=== PATIENT | female | born 1995 | race Caucasian/White ===

== ENCOUNTER 2016-08-27 04:00 | Inpatient (IN) | payer MEDICAID ==
[2016-08-27] MEDS ORDERED: LACTATED RINGERS 1,000 ML IV SCH ×2 (05:00→10:00)
[2016-08-27 09:35] LABS: Basophils % (Auto) 0.2 % (0.0-1.8); Eosinophils % (Auto) 0.4 % (0.0-4.3); Hematocrit 36.8 % (30.3-42.9); Hemoglobin 11.8 gm/dl (10.1-14.3); Mean Corpuscular HGB Conc 32 % (30-34); Mean Corpuscular Hemoglobin 29 pg (28-32); Mean Corpuscular Volume 91 fl (79-97); Platelet Count 300 K/mm3 (140-440); Red Blood Count 4.07 M/mm3 (3.65-5.03); Red Cell Distribution Width 16.2 % (13.2-15.2); White Blood Count 11.3 K/mm3 (4.5-11.0)
[2016-08-27] MEDS ORDERED: POLYCILLIN/NS 2 GM/100 ML 2 GM/100 ML BAG IV ONE (09:46)
--- NOTE | 2016-08-27 09:52 | History and Physical Report ---
History of Present Illness Date of examination: 08/27/16 Chief complaint: Labor History of present illness: Pt is a 21yo HF EDC 08/28/16; EGA 39 6/7 weeks presents to L&D complaining of RUC's q 2-4 mins. She received care with Dr Michel, and care has been uneventful, but records are not available. Past History Past Medical History: no pertinent history Past Surgical History: no surgical history Family/Genetic History: none Social history: no significant social history, single - Obstetrical History Expected Date of Delivery: 08/28/16 Actual Gestation: 39 Week(s) 6 Day(s) : 1 Medications and Allergies Allergies Allergy/AdvReac Type Severity Reaction Status Date / Time No Known Allergies Allergy Unverified 08/27/16 04:01 Home Medications Medication Instructions Recorded Confirmed Last Taken Type Pnv with Ca,No.72/Iron/FA [Pnv 1 tab PO DAILY 08/27/16 08/27/16 08/26/16 21:00 History Plus Multivit Tab] 1 Active Meds: Active Medications Butorphanol Tartrate (Stadol) 2 mg IV Q2H PRN PRN Reason: Pain , Severe (7-10) Ephedrine Sulfate (Ephedrine Sulfate) 10 mg IV Q2M PRN PRN Reason: Hypotension Stop: 08/27/16 09:51 Fentanyl (Sublimaze) 100 mcg IV Q2H PRN PRN Reason: Labor Pain Lactated Ringer's (Lactated Ringers) 1,000 mls @ 125 mls/hr IV DIRECT GIBSON Last Admin: 08/27/16 05:00 Dose: 125 mls/hr Lactated Ringer's (Lactated Ringers) 1,000 mls @ 125 mls/hr IV DIRECT GIBSON Ampicillin Sodium (Polycillin/Ns 1 Gm/50 Ml) 1 gm in 50 mls @ 100 mls/hr IV Q4HR GIBSON PRN Reason: Protocol Ampicillin Sodium (Polycillin/Ns 2 Gm/100 Ml) 2 gm in 100 mls @ 100 mls/hr IV ONCE ONE PRN Reason: Protocol Stop: 08/27/16 10:45 Lactated Ringer's (Lactated Ringers) 1,000 mls @ 125 mls/hr IV DIRECT GIBSON Oxytocin/Sodium Chloride (Pitocin/Ns 20 Unit/1000ml Drip) 20 units in 1,000 mls @ 125 mls/hr IV DIRECT GIBSON Oxytocin/Sodium Chloride (Pitocin/Ns 30 Unit/500ml) 30 units in 500 mls @ 4 mls /hr IV TITR GIBSON PRN Reason: Protocol Oxytocin/Sodium Chloride (Pitocin/Ns 30 Unit/500ml) 30 units in 500 mls @ 1 mls /hr IV TITR GIBSON; 1 MILLIUNITS/MIN PRN Reason: Protocol Lidocaine (Xylocaine 2%) 20 ml INFILTRATI ONCE ONE Stop: 08/27/16 09:47 Mineral Oil (Mineral Oil) 30 ml PO QHS PRN PRN Reason: Constipation Naloxone HCl (Narcan 0.4 Mg/1 Ml) 0.1 mg IV Q2MIN PRN PRN Reason: Res Rate </= 8 or 02 SAT < 92% Ondansetron HCl (Zofran) 4 mg IV Q8H PRN PRN Reason: Nausea And Vomiting Promethazine HCl (Phenergan) 25 mg PO Q6H PRN PRN Reason: Nausea And Vomiting Review of Systems All systems: negative - Vital Signs Vital signs: Vital Signs Pulse Pulse Ox 100 H 97 08/27/16 04:07 08/27/16 04:07 Temp Pulse Resp BP Pulse Ox 98.4 F 90 18 126/73 97 08/27/16 04:10 08/27/16 08:28 08/27/16 04:10 08/27/16 08:28 08/27/16 04:47 - Physical Exam Breasts: Positive: deferred Cardiovascular: Regular rate Lungs: Positive: Clear to auscultation Abdomen: Positive: normal appearance Genitourinary (Female): Positive: normal external genitalia Uterus: Positive: enlarged Extremities: Positive: normal - Obstetrical FHR: category 1 Uterine Contraction Monitor Mode: External Cervical Dilatation: 4.5 Cervical Effacement Percentage: 80 station: -2 Uterine Contraction Pattern: Regular Uterine Tone Measurement Phase: Contraction Uterine Contraction Intensity: Moderate Results Result Diagrams: 08/27/16 07:00 Abnormal lab results 08/27/16 Range/Units 07:00 WBC 11.3 H (4.5-11.0) K/mm3 RDW 16.2 H (13.2-15.2) % [place] % (Auto) 7.8 H (0.0-7.3) % [place] # 0.9 H (0.0-0.8) K/mm3 Seg Neutrophils % 76.4 H (40.0-70.0) % Seg Neutrophils # 8.7 H (1.8-7.7) K/mm3 All other labs normal. Assessment and Plan - Patient Problems (1) 39 weeks gestation of Onset Date: 08/27/16 Current Visit: Yes Status: Acute Plan to address problem: A: IUP @ 39 6/7 weeks in labor Unknown GBS P: Admit to L&D for expectant vaginal delivery IV Ampicillin Obtain medical records [facility].
[2016-08-27] MEDS ORDERED: NARCAN 0.4 MG/1 ML IV PRN (10:00)
[2016-08-27] MEDS ORDERED: ePHEDrine SULFATE IV PRN ×2 (10:00→11:46)
[2016-08-27] MEDS ORDERED: BRETHINE IVP PRN (10:00)
[2016-08-27] MEDS ORDERED: BRETHINE SUB-Q PRN (10:00)
[2016-08-27] MEDS ORDERED: PITOCin/NS 20 UNIT/1000ML DRIP 20 UNITS/1,000 ML BAG IV SCH (10:00)
[2016-08-27] MEDS ORDERED: PHENERGAN PO PRN (10:00)
[2016-08-27] MEDS ORDERED: SUBLIMAZE IV PRN (10:00)
[2016-08-27] MEDS ORDERED: PITOCin/NS 30 UNIT/500ML 30 UNITS/500 ML BAG IV SCH (10:00)
[2016-08-27] MEDS ORDERED: ZOFRAN IV PRN (10:00)
[2016-08-27] MEDS ORDERED: STADOL IV PRN (10:00)
[2016-08-27] MEDS ORDERED: XYLOCAINE 2% INFILTRATI ONE (10:00)
[2016-08-27] MEDS: LACTATED RINGERS 1,000 ML IV SCH ×3 (11:00→19:43)
[2016-08-27 11:09] LABS: HIV-1 Antigen p24 Non React (Non React); HIVR-1/2 Ab Non React (Non React)
[2016-08-27] MEDS ORDERED: ePHEDrine SULFATE ONE (11:38)
--- NOTE | 2016-08-27 11:46 | Anesthesia Consultation ---
Anesthesia Consult and Med Hx Date of service: 08/27/16 - Airway Anesthetic Teeth Evaluation: Good ROM Head & Neck: Adequate Mental/Hyoid Distance: Adequate Mallampati Class: Class II Intubation Access Assessment: Probably Good - Pulmonary Exam CTA: Yes - Cardiac Exam Cardiac Exam: RRR - Pre-Operative Health Status ASA Pre-Surgery Classification: ASA2 Proposed Anesthetic Plan: Epidural, Spinal - Pulmonary Hx Asthma: No COPD: No Hx Pneumonia: No - Cardiovascular System Hx Hypertension: No - Central Nervous System Hx Seizures: No Hx Psychiatric Problems: No - Endocrine Hx Renal Disease: No Hx End Stage Renal Disease: No Hx Hypothyroidism: No Hx Hyperthyroidism: No - Hematic Hx Anemia: No Hx Sickle Cell Disease: No - Other Systems Hx Alcohol Use: No Hx Obesity: Yes - Additional Comments Anesthesia Medical History Comments: +
[2016-08-27] MEDS: PITOCin/NS 30 UNIT/500ML 30 UNITS/500 ML BAG IV SCH ×3 (12:19→17:15)
[2016-08-27] MEDS: fentaNYL-BUPIV 2 MCG/ML-0.125% 200 MCG/100 ML BAG EPIDURAL SCH ×2 (12:52→20:31)
[2016-08-27] MEDS: POLYCILLIN/NS 1 GM/50 ML 1 GM/50 ML BAG IV SCH ×3 (13:31→21:41)
[2016-08-27 16:06] LABS: Urine Drugs of Abuse Note Disclamer
[2016-08-27] MEDS ORDERED: TYLENOL PO ONE (18:38)
[2016-08-27] MEDS ORDERED: MARCAINE-EPI/PF 0.5%-1:200,000 INFILTRATI ONE (18:41)
[2016-08-27] MEDS ORDERED: MINERAL OIL PO PRN (22:00)
--- NOTE | 2016-08-27 22:16 | Procedure Note ---
OB Delivery Note - Delivery Date of Delivery: 08/27/16 Surgeon: DENIS HERNANDEZ Estimated blood loss: 300cc - Vaginal Delivery presentation: vertex Delivery position: OA Intrapartum events: no care Delivery induction: none Delivery augmentation: pitocin Delivery monitor: external FHT, external uterine Route of delivery: vacuum extraction (3 pulls, no pop-offs) Indicators for instrumentation: maternal exhaustion Delivery placenta: spontaneous Delivery cord: 3 umbilical vessels Episiotomy: none Delivery laceration: 2nd degree (vaginal) Delivery repair: vicryl Anesthesia: epidural Delivery comments: delivered after 3 pulls and no pop-offs, oropharynx and nasopharynx bulb suctioned on perineum and handed to awaiting RT and NICU nurse. - A at 1 minute: 8 at 5 minutes: 9 Gender: Female (3827gms)
[2016-08-28] MEDS ORDERED: SENOKOT S PO SCH
[2016-08-28] MEDS ORDERED: DULCOLAX PR PRN (00:10)
[2016-08-28] MEDS ORDERED: ZOFRAN IV PRN (00:10)
[2016-08-28] MEDS ORDERED: TUCKS PAD TP PRN (00:10)
[2016-08-28] MEDS ORDERED: PHENERGAN PR PRN (00:10)
[2016-08-28] MEDS ORDERED: TYLENOL PO PRN (00:10)
[2016-08-28] MEDS ORDERED: MILK OF MAGNESIA PO PRN (00:10)
[2016-08-28] MEDS ORDERED: DERMOPLAST TP PRN (00:10)
[2016-08-28] MEDS ORDERED: BENADRYL PO PRN (00:10)
[2016-08-28] MEDS ORDERED: PHENERGAN PO PRN (00:10)
[2016-08-28] MEDS ORDERED: LANSINOH TP PRN (00:10)
[2016-08-28] MEDS: MOTRIN PO SCH ×4 (00:35→23:00)
[2016-08-28] MEDS ORDERED: SODIUM CHLORIDE FLUSH SYRINGE 10 ML IV NR (01:00)
[2016-08-28] MEDS ORDERED: PITOCin/NS 20 UNIT/1000ML DRIP 20 UNITS/1,000 ML BAG IV SCH (01:00)
[2016-08-28] MEDS: NORCO 5/325 PO PRN ×3 (01:16→22:59)
[2016-08-28] MEDS ORDERED: BOOSTRIX IM ONE (06:00)
--- NOTE | 2016-08-28 10:13 | Progress Note ---
Assessment and Plan - Patient Problems (1) 39 weeks gestation of Onset Date: 08/27/16 Current Visit: Yes Status: Resolved (2) (normal spontaneous vaginal delivery) Onset Date: 08/28/16 Current Visit: Yes Status: Resolved Plan to address problem: A: S/P - PPD #1 Doing well P: May go home tomorrow. Subjective - Subjective Date of service: 08/28/16 Principal diagnosis: s/p - PPD #1 Interval history: Pt is feeling well without complaints. Bleeding improved. Patient reports: appetite normal, voiding normally, pain well controlled, ambulating normally [place]: doing well, nursing well Objective - Vital Signs Latest vital signs: Vital Signs Temp Pulse Pulse Resp BP BP Pulse Ox 08/28/16 09:05 97.9 F 84 18 99/55 08/28/16 05:00 98.2 F 89 20 108/52 08/28/16 01:16 18 08/28/16 00:35 18 08/27/16 23:55 99.7 F H 115 H 20 120/55 08/27/16 23:25 98.4 F 08/27/16 23:07 117 H 111/56 08/27/16 23:04 118 H 95 08/27/16 22:59 115 H 125/63 95 08/27/16 22:54 111 H 95 08/27/16 22:49 115 H 94 08/27/16 22:44 115 H 126/65 95 08/27/16 22:39 119 H 95 08/27/16 22:34 112 H 95 08/27/16 22:30 118 H 122/66 08/27/16 22:29 118 H 97 08/27/16 22:24 113 H 97 08/27/16 22:20 101.2 F H 20 08/27/16 22:19 116 H 98 08/27/16 22:14 119 H 112/58 98 08/27/16 22:09 117 H 97 08/27/16 21:59 123 H 115/56 08/27/16 21:46 118 H 122/57 08/27/16 21:31 139 H 131/59 08/27/16 21:15 89 114/56 08/27/16 21:00 117 H 145/65 08/27/16 20:56 109 H 99 08/27/16 20:51 93 H 98 08/27/16 20:47 97 H 107/51 08/27/16 20:46 104 H 97 08/27/16 20:41 109 H 96 08/27/16 20:36 145 H 96 08/27/16 20:31 111 H 141/62 98 08/27/16 20:26 105 H 95 08/27/16 20:21 91 H 98 08/27/16 20:16 107 H 98 08/27/16 20:14 93 H 127/61 08/27/16 20:13 93 H 141/91 08/27/16 20:11 120 H 114/44 99 08/27/16 20:09 127 H 106/54 08/27/16 20:07 115 H 138/65 08/27/16 20:06 146 H 98 08/27/16 20:05 108 H 113/60 08/27/16 20:03 92 H 114/60 08/27/16 20:01 97 H 115/61 99 08/27/16 19:59 106 H 119/65 08/27/16 19:57 99 H 114/66 08/27/16 19:56 100 H 97 08/27/16 19:55 97 H 117/60 08/27/16 19:53 95 H 125/67 08/27/16 19:51 115 H 126/74 99 08/27/16 19:49 116 H 127/66 08/27/16 19:47 110 H 124/66 08/27/16 19:46 111 H 98 08/27/16 19:45 110 H 129/72 08/27/16 19:41 99 H 97 08/27/16 19:36 105 H 136/70 97 08/27/16 19:31 110 H 99 08/27/16 19:28 104 H 86 08/27/16 19:26 95 H 97 08/27/16 19:21 106 H 99 08/27/16 19:20 96 H 121/68 08/27/16 19:18 96 H 125/60 90 08/27/16 19:17 99.3 F 22 08/27/16 19:16 86 126/58 100 08/27/16 19:14 77 117/57 08/27/16 19:12 78 114/58 08/27/16 19:11 87 100 08/27/16 19:10 102 H 128/63 08/27/16 19:08 106 H 135/65 08/27/16 19:06 109 H 126/63 99 08/27/16 19:04 85 123/57 08/27/16 19:02 123 H 138/72 08/27/16 19:01 121 H 100 08/27/16 19:00 113 H 131/74 08/27/16 18:58 115 H 134/77 08/27/16 18:56 121 H 127/81 99 08/27/16 18:54 116 H 127/71 08/27/16 18:52 101 H 123/59 08/27/16 18:51 116 H 98 08/27/16 18:50 101 H 123/67 08/27/16 18:48 129 H 130/73 08/27/16 18:46 119 H 134/71 99 08/27/16 18:44 120 H 131/73 08/27/16 18:41 108 H 97 08/27/16 18:36 108 H 99 08/27/16 18:31 116 H 98 08/27/16 18:30 120 H 129/71 08/27/16 18:26 135 H 99 08/27/16 18:25 100.3 F H 08/27/16 18:21 114 H 98 08/27/16 18:16 115 H 131/62 99 08/27/16 18:11 155 H 98 08/27/16 18:06 115 H 99 08/27/16 18:00 123 H 149/76 08/27/16 17:58 108 H 92 08/27/16 17:56 96 H 94 08/27/16 17:53 102 H 99 08/27/16 17:48 96 H 98 08/27/16 17:44 93 H 111/62 08/27/16 17:43 91 H 99 08/27/16 17:38 95 H 98 08/27/16 17:33 92 H 98 08/27/16 17:30 89 112/61 08/27/16 17:28 95 H 99 08/27/16 17:23 100 H 100 08/27/16 17:18 93 H 98 08/27/16 17:16 89 111/64 08/27/16 17:13 92 H 99 08/27/16 17:08 94 H 98 03/26/17 17:03 98 H 99 08/27/16 17:00 98.9 F 90 112/69 08/27/16 16:58 83 98 08/27/16 16:53 96 H 98 08/27/16 16:48 85 98 08/27/16 16:43 86 98 08/27/16 16:39 90 124/73 08/27/16 16:38 98 H 99 08/27/16 16:33 100 H 98 08/27/16 16:28 85 99 08/27/16 16:24 85 100/55 08/27/16 16:23 91 H 99 08/27/16 16:18 77 98 08/27/16 16:13 80 98 08/27/16 16:08 76 95/57 98 08/27/16 16:03 75 98 08/27/16 15:58 76 98 08/27/16 15:54 78 93/51 08/27/16 15:53 77 98 08/27/16 15:48 82 98 08/27/16 15:43 74 98 08/27/16 15:38 78 95/53 98 08/27/16 15:33 90 98 08/27/16 15:28 97 H 99 08/27/16 15:24 75 92/52 08/27/16 15:23 72 99 08/27/16 15:18 72 99 08/27/16 15:13 98.4 F 82 18 98 08/27/16 15:08 76 95/52 98 08/27/16 15:03 92 H 98 08/27/16 14:58 87 98 08/27/16 14:53 101 H 123/74 97 08/27/16 14:48 85 96 08/27/16 14:43 81 96 08/27/16 14:39 85 118/68 08/27/16 14:38 83 96 08/27/16 14:33 81 96 08/27/16 14:28 105 H 97 08/27/16 14:23 82 114/75 97 08/27/16 14:18 84 96 08/27/16 14:13 82 96 08/27/16 14:08 82 109/69 97 08/27/16 14:03 77 97 08/27/16 13:58 76 98 08/27/16 13:53 81 113/72 98 08/27/16 13:48 81 98 08/27/16 13:43 81 97 08/27/16 13:40 100 H 128/87 08/27/16 13:38 98 H 99 08/27/16 13:36 97.5 F L 18 08/27/16 13:33 76 99 08/27/16 13:28 96 H 98 08/27/16 13:24 79 116/77 08/27/16 13:23 90 99 08/27/16 13:18 88 99 08/27/16 13:13 90 98 08/27/16 13:08 74 109/59 99 08/27/16 13:03 71 99 08/27/16 12:58 79 98 08/27/16 12:53 69 108/56 98 08/27/16 12:48 76 98 08/27/16 12:43 92 H 98 08/27/16 12:38 81 108/58 97 08/27/16 12:33 85 98 08/27/16 12:28 98 H 99 08/27/16 12:23 71 99 08/27/16 12:18 83 100 08/27/16 12:13 71 109/65 100 08/27/16 12:08 96 H 100 08/27/16 12:03 84 116/64 99 08/27/16 12:01 91 H 114/65 08/27/16 11:59 83 116/65 08/27/16 11:58 90 100 08/27/16 11:57 82 120/63 08/27/16 11:55 104 H 126/75 08/27/16 11:53 104 H 134/77 100 08/27/16 11:51 104 H 130/77 08/27/16 11:50 107 H 128/78 08/27/16 11:48 90 100 08/27/16 11:44 102 H 134/83 08/27/16 11:43 117 H 99 08/27/16 11:38 75 98 08/27/16 10:58 96.8 F L 18 08/27/16 10:53 87 122/74 Intake and Output 08/27/16 08/28/16 08/28/16 22:59 06:59 14:59 Intake Total 5368.7 360 Output Total 2200 1400 Balance 3168.7 -1040 Intake: IV 1668.7 Lactated Ringers 1,000 ml 1000 @ 125 mls/hr IV DIRECT GIBSON Rx#:[id number] Lactated Ringers 1,000 ml 500 @ 125 mls/hr IV DIRECT GIBSON Rx#:[id number] PITOCin/NS 30 UNIT/500ML 32 30 units In 500 ml @ 4 mls/hr IV TITR GIBSON Rx#: [id number] POLYCILLIN/NS 1 GM/50 ML 100 1 gm In 50 ml @ 100 mls/ hr IV Q4HR GIBSON Rx#: [id number] fentaNYL-BUPIV 2 MCG/ML-0 36.7 .125% 200 mcg In 100 ml @ 12 mls/hr EPIDURAL TITR GIBSON Rx#:[id number] Intake, Free Water 360 Other 3700 Output: Urine 2200 1400 Indwelling Catheter 2200 Void 1400 Other: Intake, Other Source Saline Solution Total, Intake Amount 1100 Total, Output Amount 1000 500 Estimated Blood Loss 300 - Exam Breasts: Present: deferred Cardiovascular: Present: Regular rate Lungs: Present: Clear to auscultation Abdomen: Present: normal appearance, soft Uterus: Present: normal, firm, fundal height below umbilicus Extremities: Present: normal - Labs Labs: Laboratory Tests 08/27/16 08/27/16 08/27/16 07:00 07:00 07:00 WBC 11.3 H RBC 4.07 Hgb 11.8 Hct 36.8 MCV 91 MCH 29 MCHC 32 RDW 16.2 H Plt Count 300 Lymph % (Auto) 15.2 [place] % (Auto) 7.8 H Eos % (Auto) 0.4 Baso % (Auto) 0.2 Lymph # 1.7 [place] # 0.9 H Eos # 0.0 Baso # 0.0 Seg Neutrophils % 76.4 H Seg Neutrophils # 8.7 H Sickle Cell Screen Urine Opiates Screen Urine Methadone Screen Ur Barbiturates Screen Ur Phencyclidine Scrn Ur Amphetamines Screen U Benzodiazepines Scrn Urine Cocaine Screen U Marijuana (THC) Screen Drugs of Abuse Note RPR Nonreactive Hep Bs Antigen Hepatitis C Antibody HIV 1&2 Antibody Rapid HIV P24 Antigen Rubella IgG Antibody Blood Type O POSITIVE Antibody Screen Negative 08/27/16 08/27/16 08/27/16 07:00 07:00 07:00 WBC RBC Hgb Hct MCV MCH MCHC RDW Plt Count Lymph % (Auto) [place] % (Auto) Eos % (Auto) Baso % (Auto) Lymph # [place] # Eos # Baso # Seg Neutrophils % Seg Neutrophils # Sickle Cell Screen Negative Urine Opiates Screen Urine Methadone Screen Ur Barbiturates Screen Ur Phencyclidine Scrn Ur Amphetamines Screen U Benzodiazepines Scrn Urine Cocaine Screen U Marijuana (THC) Screen Drugs of Abuse Note RPR Hep Bs Antigen Non-reactive Hepatitis C Antibody Non-reactive HIV 1&2 Antibody Rapid Non react HIV P24 Antigen Non react Rubella IgG Antibody Immune Blood Type Antibody Screen 08/27/16 08/28/16 16:00 12:22 WBC RBC Hgb 10.0 L Hct 31.5 MCV MCH MCHC RDW Plt Count Lymph % (Auto) [place] % (Auto) Eos % (Auto) Baso % (Auto) Lymph # [place] # Eos # Baso # Seg Neutrophils % Seg Neutrophils # Sickle Cell Screen Urine Opiates Screen Presumptive negative Urine Methadone Screen Presumptive negative Ur Barbiturates Screen Presumptive negative Ur Phencyclidine Scrn Presumptive negative Ur Amphetamines Screen Presumptive negative U Benzodiazepines Scrn Presumptive negative Urine Cocaine Screen Presumptive negative U Marijuana (THC) Screen Presumptive negative Drugs of Abuse Note Disclamer RPR Hep Bs Antigen Hepatitis C Antibody HIV 1&2 Antibody Rapid HIV P24 Antigen Rubella IgG Antibody Blood Type Antibody Screen
[2016-08-28] MEDS: COLACE PO SCH ×2 (11:00→21:58)
[2016-08-28] MEDS: FEOSOL PO SCH ×2 (11:00→21:58)
[2016-08-28] MEDS: PRENATAL VITAMIN PO SCH (11:00)
[2016-08-28] MEDS ORDERED: FLUARIX QUAD 2016-2017(36 MOS+) IM ONE (12:00)
[2016-08-28 12:45] LABS: Hematocrit 31.5 % (30.3-42.9)
--- NOTE | 2016-08-28 14:56 | Discharge Summary ---
Providers - Providers Date of Admission: 08/27/16 09:41 Date of discharge: 08/29/16 Attending physician: DENIS HERNANDEZ Primary care physician: DENIS HERNANDEZ Hospitalization Reason for admission: active labor, IUP at term Delivery: vacuum extraction Episiotomy: none Laceration: 2nd degree Other procedures: none complications: none Discharge diagnosis: IUP at term delivered baby: female Hospital course: Unremarkable. Condition at discharge: Good Disposition: DISCHARGED TO HOME OR SELFCARE - Discharge Diagnoses (1) 39 weeks gestation of Status: Resolved (2) (normal spontaneous vaginal delivery) Status: Resolved Plan - Discharge Medications Prescriptions: Ferrous Sulfate [Feosol 325 MG tab] 325 mg PO BID #60 tablet Ibuprofen [Motrin 600 MG tab] 600 mg PO Q6H #30 tablet Vit-Fe Fumar-FA [ Vitamin] 1 each PO QDAY #30 tablet - Provider Discharge Summary Activity: routine, no sex for 6 weeks, no heavy lifting 4 weeks, no strenuous exercise Diet: routine Instructions: routine Additional instructions: [] Smoking cessation referral if applicable(refer to patient education folder for contact #) [] Refer to [facility]'s [facility] Booklet Call your doctor immediately for: * Fever > 100.5 * Heavy vaginal bleeding ( >1 pad per hour) * Severe persistent headache * Shortness of breath * Reddened, hot, painful area to leg or breast * Drainage or odor from incision. * Keep incision clean and dry at all times and follow doctor's instructions regarding bathing/showering - Follow up plan Follow up: DENIS HERNANDEZ MD [Primary Care Provider] - 6 Weeks
[2016-08-29] MEDS ORDERED: M-M-R II VACCINE SUB-Q ONE (06:00)
[2016-08-29] MEDS: MOTRIN PO SCH (06:00)
[2016-08-29] MEDS: PRENATAL VITAMIN PO SCH (09:52)
[2016-08-29] MEDS: FEOSOL PO SCH (09:52)
[2016-08-29] MEDS: COLACE PO SCH (09:52)
[2016-08-29 18:20] VITALS: BP 112/66
== END 2016-08-29 15:10 | disposition home or self-care (01) | DRG 775 ==
LOC: TRG 04:00 → LD 09:41 → OB 23:40
PROVIDERS: ADMIT Obstetrics & Gynecology; ATTEND Obstetrics & Gynecology
PROC: 10D07Z6 Extraction of Products of Conception, Vacuum, Via Natural or Artificial Opening (ICD-10-PCS; principal; 2016-08-27)
PROC: 0KQM0ZZ Repair Perineum Muscle, Open Approach (ICD-10-PCS; 2016-08-27)
PROC: 3E0S3CZ (ICD-10-PCS; 2016-08-27)
PROC: 00HU33Z Insertion of Infusion Device into Spinal Canal, Percutaneous Approach (ICD-10-PCS; 2016-08-27)
PROC: 3E0234Z Introduction of Serum, Toxoid and Vaccine into Muscle, Percutaneous Approach (ICD-10-PCS; 2016-08-28)
DX: O99.214 Obesity complicating childbirth (principal); E66.9 Obesity, unspecified; O71.4 Obstetric high vaginal laceration alone; Z37.0 Single live birth; Z3A.39 39 weeks gestation of pregnancy; Z68.36 Body mass index [BMI] 36.0-36.9, adult; Z23 Encounter for immunization
CPT/HCPCS: 36415; 80307; 85014; 85018; 85025; 85660; 86592; 86706; 86762; 86803; 86850; 86900; 86901; 87806; 88307; 90471; 90686; 90715; 99211; G0008; G0463; J0290; J2590; J3010; J7120